=== PATIENT | female | born 1945 | race Caucasian/White ===

== ENCOUNTER 2018-06-23 12:35 | Emergency (ER) | payer MEDICARE ==
[2018-06-23] MEDS ORDERED: METHYLPREDNISOLONE INJ 125 MG/2 ML SDV IV ONE (13:14)
--- NOTE | 2018-06-23 13:14 | ER Document Report ---
ED Allergic Reaction - General Mode of Arrival: Ambulatory Information source: Patient TRAVEL OUTSIDE OF THE [place] IN LAST 30 DAYS: No - General Chief Complaint: Allergic Reaction Stated Complaint: POSSIBLE ALLERGIC REACTION Time Seen by Provider: 06/23/18 12:59 Notes: 73-year-old female who presents emergency department today with complaints of an allergic reaction. Patient states that she took some amoxicillin that was her daughter's secondary to "back pain" thinking she might have a urinary tract infection. Patient states shortly after taking the amoxicillin she developed palm itching, shortness of breath, and lip swelling. Patient received epinephrine, breathing treatments, Benadryl, Zofran, and Pepcid by EMS in route to this facility. Patient states she feels much better now after that treatment. Patient does have a known allergy to Keflex. Patient has had an associated headache and one episode of vomiting. Patient denies any numbness, tingling, trauma, or injury to her back. (MARY GAFFNEY) - Related Data Allergies/Adverse Reactions: celecoxib [From Celebrex] Allergy (Verified 09/02/12 10:33) Past Medical History - General Information source: Patient - Social History Smoking Status: Former Smoker Lives with: Family Family History: Reviewed & Not Pertinent - Past Medical History Cardiac Medical History: Reports: Hx Hypertension Musculoskeletal Medical History: Reports Hx Arthritis Surgical Hx: Negative - Immunizations Immunizations up to date: Yes Hx Diphtheria, Pertussis, Tetanus Vaccination: No Review of Systems - Review of Systems Constitutional: See HPI, Other - allergic reaction EENT: See HPI, Other - lip swelling prior to EMS treatment Cardiovascular: No symptoms reported Respiratory: See HPI, Short of breath - prior to EMS treatment Gastrointestinal: See HPI, Vomiting Genitourinary: No symptoms reported Female Genitourinary: No symptoms reported Musculoskeletal: No symptoms reported Skin: See HPI, Other - itchy, prior to EMS treatment Hematologic/Lymphatic: No symptoms reported Neurological/Psychological: See HPI, Headaches -: Yes All other systems reviewed and negative Physical Exam - Vital signs Vitals: Resp BP Pulse Ox 16 151/76 H 96 06/23/18 12:44 06/23/18 12:44 06/23/18 12:44 - Notes Notes: PHYSICAL EXAM GENERAL: Alert, interacts well. No acute distress. HEAD: Normocephalic, atraumatic. EYES: Pupils equal, round, and reactive to light. Extraocular movements intact. ENT: Oral mucosa moist, tongue midline. Upper lip swelling, left greater than right. No airway compromise. NECK: Full range of motion. Supple. Trachea midline. LUNGS: Clear to auscultation bilaterally, no wheezes, rales, or rhonchi. No respiratory distress. HEART: Regular rate and rhythm. No murmurs, gallops, or rubs. ABDOMEN: Soft, non-tender. Non-distended. Bowel sounds present in all 4 quadrants. No guarding, rigidity, or rebound. EXTREMITIES: Moves all 4 extremities spontaneously. No edema, radial and dorsalis pedis pulses 2/4 bilaterally. No cyanosis. NEUROLOGICAL: Alert and oriented x3. Normal speech. PSYCH: Normal affect, normal mood. SKIN: Warm, dry, normal turgor. No rashes or lesions noted. (MARY GAFFNEY) Course - Re-evaluation Re-evalutation: 06/23/18 14:31 Patient has been rechecked, still has mild swelling to the upper lip, no progression of the swelling, family at bedside feels like the swelling is actually in decreased. Patient has no hives, no respiratory distress, no difficulty swallowing. Order for urinalysis was just entered, we are checking this because she had back pain which made her feel like she might have a urinary tract infection which is why she took the amoxicillin. Patient will be checked for UTI and then discharged home with appropriate antibiotics if necessary. Patient will be also started on steroid taper as well as Zantac. ( RUTH HERNÁNDEZ) - Vital Signs Vital signs: Temp Pulse Resp BP Pulse Ox 113 H 18 124/76 95 06/23/18 12:51 06/23/18 14:01 06/23/18 14:01 06/23/18 14:01 Discharge - Discharge Clinical Impression: Anaphylactic reaction Qualifiers: Encounter type: initial encounter Qualified Code(s): T78.2XXA - Anaphylactic shock, unspecified, initial encounter Back pain Qualifiers: Back pain location: low back pain Chronicity: acute Back pain laterality: midline Sciatica presence: without sciatica Qualified Code(s): M54.5 - Low back pain Condition: Stable Disposition: HOME, SELF-CARE Additional Instructions: Your urinalysis did not show any signs of blood or infection. This is not what is causing her back pain. I do not know exactly what is causing your back pain. If you develop fever, numbness, tingling, weakness or difficulty urinating or having a bowel movement please return to the emergency department. Take Zantac 150 mg twice a day for the next 3 days, then you may take it as needed for itching. Please also take Benadryl 25-50 mg every 4-6 hours as needed for return of itching, worsening lip swelling or any difficulty breathing or swallowing. Please use the EpiPen if you have any difficulty swallowing or if the Benadryl does not improve your symptoms. If you use the EpiPen please return to the emergency department immediately. Please also take the steroids as directed until they are gone. Prescriptions: Epinephrine 0.3 mg IJ ONCE PRN #1 auto.injct PRN Reason: Prednisone [Deltasone 10 mg Tablet] 10 mg PO ASDIR PRN #21 tablet PRN Reason: Josh Attestation: 06/23/18 15:14 I personally performed the services described in the documentation, reviewed and edited the documentation which was dictated to the scribe in my presence, and it accurately records my words and actions. (RUTH HERNÁNDEZ) Scribe Documentation - Scribe Written by Josh:: Josh Harper, 06/23/2018 1440 acting as scribe for :: Henrietta
[2018-06-23 14:09] VITALS: BP 124/76
[2018-06-23 15:08] LABS: APPEARANCE,URINE SLIGHTLY-CLOUDY; BILIRUBIN,URINE NEGATIVE (NEGATIVE); COLOR,URINE YELLOW; GLUCOSE, URINE NEGATIVE (NEGATIVE); KETONES,URINE NEGATIVE (NEGATIVE); LEUKOCYTE ESTERASE,URINE NEGATIVE (NEGATIVE); NITRITE,URINE NEGATIVE (NEGATIVE); PROTEIN,URINE NEGATIVE (NEGATIVE); URINE SPECIFIC GRAVITY 1.012; UROBILINOGEN,URINE NEGATIVE mg/dL (<2.0)
== END 2018-06-23 15:27 | disposition home or self-care (01) ==
LOC: ER 12:35
DX: T78.2XXA Anaphylactic shock, unspecified, initial encounter (principal); M54.5 Low back pain; M54.9 Dorsalgia, unspecified; R22.0 Localized swelling, mass and lump, head; R06.02 Shortness of breath; Z87.891 Personal history of nicotine dependence; I10 Essential (primary) hypertension
CPT/HCPCS: 99284; 96374; 81001; J2930